=== PATIENT | male | born 1955 | race Caucasian/White ===

== ENCOUNTER → 2016-05-20 | Outpatient (CLI) | payer MEDICAID ==
[~2016-05-20] MED LIST: HYDROCHLOROTHIA1 TA2 PO; LISINOPRIL 10MG10 MG PO; LOPRESSOR 25MG.25 MG PO
[2016-05-20 13:53] LABS: BILIRUBIN, INDIRECT 0.32 mg/dL (0-0.9)
== END ==
LOC: LAB 11:57
PROVIDERS: Internal Medicine
DX: I25.10 Atherosclerotic heart disease of native coronary artery without angina pectoris (principal); E78.5 Hyperlipidemia, unspecified

== ENCOUNTER → 2017-03-22 | Outpatient (CLI) | payer MEDICAID | LOC: LAB 16:05 | DX: L02.416 Cutaneous abscess of left lower limb (principal) ==